=== PATIENT | male | born 1970 | race Caucasian/White ===

== ENCOUNTER 2018-05-21 11:17 | Emergency (ER) | payer BC ==
[2018-05-21] MEDS ORDERED: Bacitracin Oint 1 GM U/D Packet TOP ONE (11:52)
--- NOTE | 2018-05-21 12:24 | EDM.PDOC ---
ED HPI GENERAL MEDICAL PROBLEM - General Chief Complaint: Laceration Stated Complaint: CUT ON LEFT FINGER LOOSING FEELING Time Seen by Provider: 05/21/18 11:50 Source of Information: Reports: Patient History Limitations: Reports: No Limitations - History of Present Illness INITIAL COMMENTS - FREE TEXT/NARRATIVE: 47-year-old male was cutting an avocado, the knife slipped and cut the ulnar aspect of his proximal middle finger on the left hand. It's a fairly deep cut, the cutaneous nerves are involved with distal paresthesias of the finger but no tendons are involved. He has full range of motion. No other injury. His tetanus is current. Onset: Sudden Duration: Hour(s): (Within the last hour) Location: Reports: Upper Extremity, Left Associated Symptoms: Reports: No Other Symptoms Left Hand Pain Score (Numeric/FACES): 2 - Related Data Allergies Allergy/AdvReac Type Severity Reaction Status Date / Time No Known Allergies Allergy Verified 05/21/18 11:44 Home Meds: Home Meds NK [No Known Home Meds] 05/21/18 [History] Past Medical History HEENT History: Reports: Impaired Vision Musculoskeletal History: Reports: Fracture Other Musculoskeletal History: foot fx - Infectious Disease History Infectious Disease History: Reports: Chicken Pox Social & Family History - Tobacco Use Smoking Status *Q: Never Smoker Second Hand Smoke Exposure: No - Caffeine Use Caffeine Use: Reports: Coffee - Alcohol Use Days Per Week of Alcohol Use: 7 Number of Drinks Per Day: 3 Total Drinks Per Week: 21 - Recreational Drug Use Recreational Drug Use: No ED ROS GENERAL - Review of Systems Review Of Systems: See Below Constitutional: Denies: Fever, Chills Respiratory: Denies: Shortness of Breath GI/Abdominal: Reports: No Symptoms. Denies: Nausea, Vomiting Psychiatric: Reports: Anxiety ED EXAM, SKIN/RASH Exam: See Below Exam Limited By: No Limitations General Appearance: Alert, No Apparent Distress Respiratory/Chest: No Respiratory Distress Extremities: Other (Exam is otherwise limited to left hand. The patient has a 3 cm laceration around the ulnar aspect of the middle finger on the left hand just distal to the MP joint. He does have some distal paresthesias and numbness on the ulnar aspect of the finger. No limitations of range of motion. No vascular compromise.) Course - Vital Signs Last Recorded V/S: Last Vital Signs Temp 98.2 F 05/21/18 11:42 Pulse 64 05/21/18 11:42 Resp 16 05/21/18 11:42 BP 138/68 05/21/18 11:42 Pulse Ox 94 L 05/21/18 11:42 - Orders/Labs/Meds Meds: Medications Discontinued Medications Generic Name Dose Route Start Last Admin Trade Name Gerardo PRN Reason Stop Dose Admin Bacitracin 1 dose 05/21/18 11:52 05/21/18 11:56 Bacitracin Oint 1 Gm TOP 05/21/18 11:53 1 dose ONETIME ONE Administration Lidocaine HCl 5 ml 05/21/18 11:51 05/21/18 11:56 Xylocaine-Mpf 1% INJECT 05/21/18 11:52 5 ml ONETIME ONE Administration - Re-Assessments/Exams Free Text/Narrative Re-Assessment/Exam: 05/21/18 12:22 The laceration was anesthetized with 1% lidocaine, cleansed thoroughly with saline and Hibiclens and 6 4-0 Ethilon sutures were used to close the wound. Bacitracin and a Band-Aid was applied and he'll keep the stitches in for the next 9 days. He can return sooner if concerns of infection or not healing satisfactorily. Departure - Departure Time of Disposition: 12:37 Disposition: Home, Self-Care 01 Condition: Good Clinical Impression: Finger laceration Qualifiers: Encounter type: initial encounter Finger: middle finger Damage to nail status: without damage Foreign body presence: without foreign body Laterality: left Qualified Code(s): S61.213A - Laceration without foreign body of left middle finger without damage to nail, initial encounter - Discharge Information Instructions: Laceration Care, Adult Referrals: PCP,None [Primary Care Provider] - Forms: ED Department Discharge Care Plan Goals: Keep wound covered and clean while healing, and remove stitches in 8 or 9 days. Recheck sooner if concerns of infection or not healing satisfactorily. Reexamine sooner if numbness persists and you would like another opinion on whether intervention is necessary.
== END 2018-05-21 12:30 | disposition home or self-care (01) ==
LOC: JP.ED 11:17
DX: S61.213A Laceration without foreign body of left middle finger without damage to nail, initial encounter (principal); W26.0XXA Contact with knife, initial encounter
CPT/HCPCS: 12002; 99283-25